=== PATIENT | male | born 1980 | race Caucasian/White ===

== ENCOUNTER 2022-04-27 17:45 | Emergency (ER) | payer MEDICAID ==
[~2022-04-27] VITALS: Ht 170.2 cm; Wt 73.0 kg
[2022-04-27 17:51] VITALS: BP 123/82
[2022-04-27] MEDS ORDERED: BACITRACIN ZINC OINT UDPKT TOP ONE (19:00)
[2022-04-27] MEDS ORDERED: LIDOCAINE HCL/EPINEPHRINE 1%-EPI 1:100,000 20 ML VIAL INFIL ONE (19:00)
== END 2022-04-27 20:36 | disposition home or self-care (01) ==
LOC: ER 17:45
DX: S71.111A Laceration without foreign body, right thigh, initial encounter (principal); W26.0XXA Contact with knife, initial encounter; Y93.89 Activity, other specified; Y92.39 Other specified sports and athletic area as the place of occurrence of the external cause; Y99.8 Other external cause status
CPT/HCPCS: 12002; 99283